=== PATIENT | female | born 1980 | race American Indian/Alaskan Native ===

== ENCOUNTER 2018-03-15 05:46 | Day surgery (SDC) | payer OTHER ==
[2018-01-22 10:18] VITALS: BMI 37.5
[2018-03-15] MEDS ORDERED: Propofol 10 mg/ml Inj (20 ML) ONE (08:28)
--- NOTE | 2018-03-15 08:29 | CP.SDSHP ---
Same Day Surgery H & P - History Proposed Procedure: Colonoscopy Pre-Op Diagnosis: Change in bowel habits, diverticulitis - Previous Medical/Surgical History Cardiac: Hypertension Previous Surgical History: Fibroids, rotator cuff - Allergies Allergies: Allergies No Known Allergies Allergy (Verified 12/01/17 21:18) - Current Medications Current Medications: See reconciliation sheet - Physical Exam General Appearance: WD WN female in NAD Vital Signs: Vital Signs 03/15/18 06:47 Temperature 97.3 F L Pulse Rate 64 Respiratory 19 Rate Blood Pressure 149/85 O2 Sat by Pulse 99 Oximetry Mental Status: Alert & Oriented x3 Neuro: WNL Heart: WNL Lungs: WNL GI: WNL - {Optional Preform as Required} Abdomen: WNL - Impression Impression: Change in bowel habits, diverticulitis Pt. Evaluated Today:Candidate for Anesthesia & Procedure: Yes - Date & Time Date: 03/15/18 Time: 08:29 Short Stay Discharge - Short Stay Discharge Admitting Diagnosis/Reason for Visit: CHANGE IN BOWEL HABITS Disposition: HOME/ ROUTINE
[2018-03-15 09:18] VITALS: TEMP 97.5; O2SAT 100
[2018-03-15 11:12] VITALS: BP 125/81; PULSE 65; RESP 21
== END 2018-03-15 10:20 | disposition home or self-care (01) ==
LOC: C.ENDO 05:46
PROVIDERS: ATTEND Internal Medicine Gastroenterology
DX: D12.2 Benign neoplasm of ascending colon (principal); K57.30 Diverticulosis of large intestine without perforation or abscess without bleeding; R19.4 Change in bowel habit; I10 Essential (primary) hypertension
CPT/HCPCS: 45380; 84703; 88305; J2704

== ENCOUNTER 2018-04-25 13:24 | Emergency (ER) | payer OTHER ==
[2018-04-25 13:24] VITALS: BMI 37.5
[2018-04-25] MEDS ORDERED: Sodium Chloride 0.9% 1,000 ML IV ONE (13:50)
[2018-04-25] MEDS ORDERED: Sodium Chloride 0.9% 1,000 ML ONE (14:30)
--- NOTE | 2018-04-25 15:08 | C.PDOC ---
History Of Present Illness 37 y/o female, with PMHx of gastritis, presents to ED c/o epigastric abdominal pain. Notes he started staking Prilosec and has been burping frequently since then. Denies ever having endoscopy. Denies nausea, vomiting, fever, or dysuria. Chief Complaint (Nursing): Abdominal Pain History Per: Patient History/Exam Limitations: no limitations Past Medical History Reviewed: Historical Data, Nursing Documentation, Vital Signs Vital Signs: Last Vital Signs Temp 98.8 F 04/25/18 16:07 Pulse 50 L 04/25/18 16:07 Resp 20 04/25/18 16:07 BP 126/84 04/25/18 16:07 Pulse Ox 100 04/25/18 16:07 - Medical History PMH: Diverticulitis, HTN Denies: Deep Vein Thrombosis, Chronic Kidney Disease Surgical History: Denies: Pacemaker - [facility] Procedures INJECT/INFUSE NEC (04/24/15) INSERTION OF INFUSION DEV INTO L SUBCLAV VEIN, PERC APPROACH (12/02/17) PHYSICAL THERAPY NEC (02/09/14) ULTRASONOGRAPHY OF LEFT SUBCLAVIAN VEIN, GUIDANCE (12/02/17) UTERINE LES DESTRUCT NEC (06/26/15) Family History: States: Unknown Family Hx - Social History Hx Tobacco Use: No Hx Alcohol Use: No Hx Substance Use: No - Immunization History Hx Tetanus Toxoid Vaccination: No Hx Influenza Vaccination: No Hx Pneumococcal Vaccination: No Review Of Systems Except As Marked, All Systems Reviewed And Found Negative. Constitutional: Negative for: Fever, Chills Cardiovascular: Negative for: Chest Pain, Palpitations Gastrointestinal: Positive for: Abdominal Pain. Negative for: Nausea, Vomiting , Diarrhea Genitourinary: Negative for: Dysuria, Frequency, Hematuria Physical Exam - Physical Exam Appears: Non-toxic, No Acute Distress Skin: Normal Color, Warm, Dry Head: Atraumatic, Normacephalic Eye(s): bilateral: Normal Inspection Oral Mucosa: Moist Neck: Supple Cardiovascular: Rhythm Regular Respiratory: Normal Breath Sounds, No Rales, No Rhonchi, No Wheezing Gastrointestinal/Abdominal: Soft, No Tenderness, No Guarding, No Rebound Back: No CVA Tenderness Extremity: Normal ROM Neurological/Psych: Oriented x3, Normal Speech ED Course And Treatment - Laboratory Results Result Diagrams: 04/25/18 15:39 04/25/18 14:57 O2 Sat by Pulse Oximetry: 97 (RA) Pulse Ox Interpretation: Normal Medical Decision Making Medical Decision Making: Plan: Blood work Urinalysis Urine culture Pepcid, Zofran, IV fluids Disposition - Disposition Referrals: Aliyah Cortes, [Non-Staff] - Disposition: HOME/ ROUTINE Disposition Time: 15:50 Condition: GOOD Additional Instructions: ASHISH LOOMIS, thank you for letting us take care of you today. Your provider was Onofre Carr DO and you were treated for ABD PAIN. The emergency medical care you received today was directed at your acute symptoms. If you were prescribed any medication, please fill it and take as directed. It may take several days for your symptoms to resolve. Return to the Emergency Department if your symptoms worsen, do not improve, or if you have any other problems. Please contact your doctor or call one of the physicians/clinics you have been referred to that are listed on the Patient Visit Information form that is included in your discharge packet. Bring any paperwork you were given at discharge with you along with any medications you are taking to your follow up visit. Our treatment cannot replace ongoing medical care by a primary care provider outside of the emergency department. Thank you for allowing the [facility] team to be part of your care today. Follow up with your primary care doctor in 3-4 days for re-evaluation and further management. Instructions: Gastritis (DC) Forms: [employer] (Urdu) - Clinical Impression Clinical Impression: Gastroesophageal reflux disease - Scribe Statement The provider has reviewed the documentation as recorded by the Scribe KP All medical record entries made by the Scribe were at my direction and personally dictated by me. I have reviewed the chart and agree that the record accurately reflects my personal performance of the history, physical exam, medical decision making, and the department course for this patient. I have also personally directed, reviewed, and agree with the discharge instructions and disposition.
[2018-04-25 15:11] LABS: URINE BILIRUBIN NEGATIVE (NEGATIVE); URINE BLOOD 3+ (NEGATIVE); URINE CLARITY Hazy (Clear); URINE COLOR Red (YELLOW); URINE GLUCOSE (UA) NORMAL (Normal); URINE LEUKOCYTE ESTERASE 1+ Leu/uL (Negative); URINE PROTEIN 2+ mg/dL (NEGATIVE); URINE UROBILINOGEN NORMAL mg/dL (0.2-1.0)
[2018-04-25 15:29] LABS: ALB/GLOB RATIO 1.1 (1.0-2.1); ALT/SGPT 15 U/L (9-52); AST/SGOT 34 U/L (14-36); BLOOD UREA NITROGEN 11 mg/dL (7-17); CALCIUM 9.1 mg/dl (8.6-10.4); GFR AFRICAN-AMERICAN > 60; GFR NON-AFRICAN AMERICAN > 60; LIPASE 74 U/L (23-300)
[2018-04-25 15:45] LABS: BASO # 0.1 K/uL (0.0-0.2); EOS # 0.1 K/uL (0.0-0.7); HEMOGLOBIN 11.9 g/dL (11.0-16.0); LYMPH # 2.5 K/uL (1.0-4.3); LYMPH % 42.7 % (20.0-40.0); MEAN CELL VOLUME 84.9 fL (81.0-99.0); MEAN PLATELET VOLUME 7.6 fL (7.2-11.7); MONO # 0.6 K/uL (0.0-0.8); MONO % 10.5 % (0.0-10.0); NEUT # 2.5 K/uL (1.8-7.0); NEUT % 43.8 % (50.0-75.0); NRBC % 0.1 % (0.0-2.0); RBC 4.25 Mil/uL (3.80-5.20); RED CELL DISTRIBUTION WIDTH 14.4 % (11.5-14.5); WHITE BLOOD COUNT 5.8 K/uL (4.8-10.8)
[2018-04-25 16:07] VITALS: BP 126/84; PULSE 50; RESP 20; TEMP 98.8
[2018-04-25 18:36] VITALS: O2SAT 97
== END 2018-04-25 16:08 | disposition home or self-care (01) ==
LOC: C.ER 13:24
DX: K21.9 Gastro-esophageal reflux disease without esophagitis (principal); I10 Essential (primary) hypertension
CPT/HCPCS: 80053; 81001; 83690; 84702; 85025; 87086; 93005; 96361; 96374; 96375; 99284; J2405; J7030

== ENCOUNTER 2018-10-10 08:20 | Emergency (ER) | payer OTHER ==
[2018-10-10 08:20] VITALS: BMI 37.5
[2018-10-10] MEDS ORDERED: Sodium Chloride 0.9% 1,000 ML IV ONE (09:05)
[2018-10-10] MEDS ORDERED: Iohexol 240 (50 ml) PO STA (09:05)
--- NOTE | 2018-10-10 09:07 | C.PDOC ---
History Of Present Illness 38 year old female presents to the ED for evaluation of localized left lower quadrant pain for 5 days. The patient reports the pain started as epigastric pain with constipations but now the pain is localized to the left lower quadra nt. Notes she increased her fluid intake and now has regular bowel movements. States the pain is worse when eating. Admits prior use of omeprazole, ran out of medication. Denies fever, chills, nausea, vomiting, urinary symptoms, and any other associated symptoms. Time Seen by Provider: 10/10/18 08:53 Chief Complaint (Nursing): Abdominal Pain History Per: Patient History/Exam Limitations: no limitations Onset/Duration Of Symptoms: Days (x5) Current Symptoms Are (Timing): Still Present Past Medical History Reviewed: Historical Data, Nursing Documentation, Vital Signs Vital Signs: Last Vital Signs Temp 98.9 F 10/10/18 08:43 Pulse 70 10/10/18 08:43 Resp 18 10/10/18 08:43 BP 144/90 10/10/18 08:43 Pulse Ox 96 10/10/18 08:43 - Medical History PMH: Diverticulitis, HTN Denies: Deep Vein Thrombosis, Chronic Kidney Disease Surgical History: Denies: Pacemaker - [facility] Procedures INJECT/INFUSE NEC (04/24/15) INSERTION OF INFUSION DEV INTO L SUBCLAV VEIN, PERC APPROACH (12/02/17) PHYSICAL THERAPY NEC (02/09/14) ULTRASONOGRAPHY OF LEFT SUBCLAVIAN VEIN, GUIDANCE (12/02/17) UTERINE LES DESTRUCT NEC (06/26/15) Family History: States: Unknown Family Hx - Social History Hx Tobacco Use: No Hx Alcohol Use: No Hx Substance Use: No - Immunization History Hx Tetanus Toxoid Vaccination: No Hx Influenza Vaccination: No Hx Pneumococcal Vaccination: No Review Of Systems Constitutional: Negative for: Fever, Chills Gastrointestinal: Positive for: Abdominal Pain (Left lower quadrant. ). Negative for: Nausea, Vomiting Genitourinary: Negative for: Other (urinary symptoms. ) Physical Exam - Physical Exam Appears: Well, Non-toxic, No Acute Distress Skin: Normal Color, Warm, Dry Head: Atraumatic, Normacephalic Eye(s): bilateral: Normal Inspection Oral Mucosa: Moist Neck: Normal ROM, Supple Chest: Symmetrical Cardiovascular: Rhythm Regular, No Murmur Respiratory: Normal Breath Sounds, No Rales, No Rhonchi, No Wheezing Gastrointestinal/Abdominal: Normal Exam, Soft, Tenderness (to the left lower quadrant. ) Extremity: Bilateral: Atraumatic, Normal Color And Temperature, Normal ROM Neurological/Psych: Oriented x3, Normal Speech Gait: Steady ED Course And Treatment - Laboratory Results Result Diagrams: 10/10/18 09:40 10/10/18 09:40 O2 Sat by Pulse Oximetry: 96 (RA) Pulse Ox Interpretation: Normal - CT Scan/US CT ABD/PELVIS Other Rad Studies (CT/US): Read By Radiologist CT/US Interpretation: FINDINGS: LOWER THORAX: The visualized lungs are clear. LIVER: Mild hepatomegaly and fatty liver. Normal homogeneous enhancement. No gross lesion or ductal dilatation. GALLBLADDER AND BILE DUCTS: Well distended. No calcified gallstones, wall thickening or pericholecystic fluid. PANCREAS: Normal in size with homogeneous enhancement. No gross lesion or ductal dilatation. SPLEEN: Normal in size and appearance. ADRENALS: No discrete nodule. KIDNEYS AND URETERS: Normal in size with homogeneous enhancement. No hydronephrosis. No solid mass. VASCULATURE: No aortic aneurysm. BOWEL: The small bowel loops are normal in caliber. There is left colonic diverticulosis. There is segmental moderate circumferential mural thickening in the distal descending and proximal sigmoid colon. There is mild surrounding inflammatory fat stranding. No micro perforation or abscess. APPENDIX: Normal appendix. PERITONEUM: No free fluid. No free air. LYMPH NODES: No enlarged lymph nodes. BLADDER: Well distended and normal in appearance. REPRODUCTIVE: There is an enlarged lobular fibroid uterus. There is redemonstration of a dilated tubular structure in the left adnexa. BONES: No acute fracture. Within normal limits for the patient's age. OTHER FINDINGS: None. IMPRESSION: Left colonic diverticulosis. Moderate circumferential mural thickening in the distal descending and proximal sigmoid colon with mild pericolonic inflammatory fat stranding most compatible with acute diverticulitis. No micro perforation or abscess. Enlarged fibroid uterus. Redemonstration of dilated tubular structure in the left adnexa likely hydrosalpinx. Correlation with pelvic ultrasound is recommended for definitive evaluation. Mild hepatomegaly and fatty liver. Medical Decision Making Medical Decision Making: Plan: -CT ABD/Pelvis PO & IV Contrast -Toradol -HCG Urine -Urinalysis Labs reviewed and unremarkable. CT shows findings consistent with diverticulitis. Will treat with cipro and flagyl. Patient stable for discharge and given Rx Disposition Counseled Patient/Family Regarding: Diagnosis, Need For Followup, Rx Given - Disposition Referrals: Jamel Khoury MD [Staff Provider] - Disposition: HOME/ ROUTINE Disposition Time: 12:11 Condition: GOOD Additional Instructions: Follow up with your primary medical doctor or clinic in 2-5 days for further evaluation. Take medications as prescribed. Return to the emergency department at any time if symptoms persist or worsen. Prescriptions: Ciprofloxacin HCl [Cipro] 500 mg PO BID #14 tab metroNIDAZOLE [Flagyl] 500 mg PO BID #14 tab Omeprazole 40 mg PO DAILY #30 capsule. Instructions: Diverticulitis (DC) Forms: [employer] (Nauruan) - POA Present On Arrival: None - Clinical Impression Clinical Impression: Acute diverticulitis - PA / AMPHIBIOUS OPERATIONS OFFICER / Resident Statement MD/DO has reviewed & agrees with the documentation as recorded. - Scribe Statement The provider has reviewed the documentation as recorded by the Scribe (Daja King) All medical record entries made by the Scribe were at my direction and personally dictated by me. I have reviewed the chart and agree that the record accurately reflects my personal performance of the history, physical exam, medical decision making, and the department course for this patient. I have also personally directed, reviewed, and agree with the discharge instructions and disposition.
[2018-10-10] MEDS ORDERED: Sodium Chloride 0.9% 1,000 ML ONE (09:16)
[2018-10-10] MEDS ORDERED: Iohexol 240 (50 ml) ONE (09:16)
[2018-10-10 09:48] LABS: BASO % 0.9 % (0.0-2.0); EOS # 0.1 K/uL (0.0-0.7); EOS % 1.5 % (0.0-4.0); HEMOGLOBIN 12.5 g/dL (11.0-16.0); LYMPH # 2.4 K/uL (1.0-4.3); LYMPH % 50.8 % (20.0-40.0); MEAN CELL VOLUME 85.1 fL (81.0-99.0); MEAN CORPUSCULAR HGB CONC 32.9 g/dL (33.0-37.0); MEAN PLATELET VOLUME 7.9 fL (7.2-11.7); MONO # 0.5 K/uL (0.0-0.8); MONO % 10.8 % (0.0-10.0); NEUT # 1.7 K/uL (1.8-7.0); NRBC % 0.1 % (0.0-2.0); RBC 4.48 Mil/uL (3.80-5.20); RED CELL DISTRIBUTION WIDTH 14.2 % (11.5-14.5); WHITE BLOOD COUNT 4.7 K/uL (4.8-10.8)
[2018-10-10 10:06] LABS: SQUAMOUS EPITHIAL 10 /hpf (0-5); URINE BACTERIA MANY (<OCC); URINE BILIRUBIN NEGATIVE (NEGATIVE); URINE BLOOD NEGATIVE (NEGATIVE); URINE CLARITY Hazy (Clear); URINE COLOR Yellow (YELLOW); URINE GLUCOSE (UA) NORMAL (Normal); URINE LEUKOCYTE ESTERASE TRACE Leu/uL (Negative); URINE PROTEIN NEGATIVE (NEGATIVE); URINE UROBILINOGEN NORMAL mg/dL (0.2-1.0)
[2018-10-10 10:10] LABS: ALB/GLOB RATIO 1.3 (1.0-2.1); ALBUMIN 4.2 g/dL (3.5-5.0); ALT/SGPT 31 U/L (9-52); AMYLASE 62 U/L (30-110); AST/SGOT 34 U/L (14-36); BLOOD UREA NITROGEN 9 mg/dL (7-17); CALCIUM 9.1 mg/dl (8.6-10.4); GFR NON-AFRICAN AMERICAN > 60; LIPASE 34 U/L (23-300)
[2018-10-10 10:12] LABS: HCG,QUALITATIVE URINE NEGATIVE (NEGATIVE)
[2018-10-10] MEDS ORDERED: Iodixanol 320 MG/ML 100 ML BOTTLE IV ONE (10:30)
[2018-10-10 12:08] VITALS: BP 142/88; PULSE 85; RESP 20; TEMP 98.3
[2018-10-10 12:11] VITALS: O2SAT 96
--- NOTE | 2018-10-10 12:11 | CT ---
Date of service: 10/10/2018 PROCEDURE: CT Abdomen and Pelvis with contrast HISTORY: Abdominal pain, LLQ COMPARISON: 07/24/2014. TECHNIQUE: CT scan of the abdomen and pelvis was performed after administration of intravenous contrast. Oral contrast was administered. Coronal and sagittal reformatted images were obtained. Contrast dose: 100 mL Visipaque 320 Radiation dose: Total exam DLP = 1083.68 mGy-cm. This CT exam was performed using one or more of the following dose reduction techniques: Automated exposure control, adjustment of the mA and/or kV according to patient size, and/or use of iterative reconstruction technique. FINDINGS: LOWER THORAX: The visualized lungs are clear. LIVER: Mild hepatomegaly and fatty liver. Normal homogeneous enhancement. No gross lesion or ductal dilatation. GALLBLADDER AND BILE DUCTS: Well distended. No calcified gallstones, wall thickening or pericholecystic fluid. PANCREAS: Normal in size with homogeneous enhancement. No gross lesion or ductal dilatation. SPLEEN: Normal in size and appearance. ADRENALS: No discrete nodule. KIDNEYS AND URETERS: Normal in size with homogeneous enhancement. No hydronephrosis. No solid mass. VASCULATURE: No aortic aneurysm. BOWEL: The small bowel loops are normal in caliber. There is left colonic diverticulosis. There is segmental moderate circumferential mural thickening in the distal descending and proximal sigmoid colon. There is mild surrounding inflammatory fat stranding. No micro perforation or abscess. APPENDIX: Normal appendix. PERITONEUM: No free fluid. No free air. LYMPH NODES: No enlarged lymph nodes. BLADDER: Well distended and normal in appearance. REPRODUCTIVE: There is an enlarged lobular fibroid uterus. There is redemonstration of a dilated tubular structure in the left adnexa BONES: No acute fracture. Within normal limits for the patient's age. OTHER FINDINGS: None. IMPRESSION: Left colonic diverticulosis. Moderate circumferential mural thickening in the distal descending and proximal sigmoid colon with mild pericolonic inflammatory fat stranding most compatible with acute diverticulitis. No micro perforation or abscess. Enlarged fibroid uterus. Redemonstration of dilated tubular structure in the left adnexa likely hydrosalpinx. Correlation with pelvic ultrasound is recommended for definitive evaluation. Mild hepatomegaly and fatty liver.
== END 2018-10-10 12:23 | disposition home or self-care (01) ==
LOC: C.ER 08:20
DX: K57.92 Diverticulitis of intestine, part unspecified, without perforation or abscess without bleeding (principal); I10 Essential (primary) hypertension
CPT/HCPCS: 74177; 80053; 81001; 82150; 83690; 84703; 85025; 96361; 96374; 96375; 99285; J1885; J7030; Q9966; Q9967

== ENCOUNTER 2018-11-11 12:22 | Outpatient (CLI) | payer OTHER | END 2018-11-11 12:23 | disposition home or self-care (01) | LOC: C.PAT 12:22 | DX: D25.9 Leiomyoma of uterus, unspecified (principal) ==

== ENCOUNTER → 2018-11-16 | Day surgery (SDC) | payer OTHER ==
[~2018-11-16] MED LIST: HYDROmorphone 0.5 mg/0.5 ml ISec IVP PRN; Midazolam 2 MG/2 ML VIAL ONE; Propofol 10 mg/ml Inj (20 ML) ONE; ceFAZolin 1 gm in NS 2 GM/200 ML BAG IVPB ONE
[2018-11-16 09:40] VITALS: O2SAT 100
[2018-11-16 10:05] VITALS: PULSE 89; RESP 15; TEMP 98.4
[2018-11-16 10:17] VITALS: BP 139/72
--- NOTE | 2018-11-16 15:18 | OP ---
PROCEDURE DATE: 11/16/2018 PREOPERATIVE DIAGNOSES: Fibroid uterus, menorrhagia. POSTOPERATIVE DIAGNOSES: Fibroid uterus, menorrhagia. PROCEDURE: Hysteroscopy, hysteroscopic myomectomy, dilatation and curettage of the uterus. FINDINGS: A 14-week size fibroid uterus with a cm anterior submucosal myoma, the remainder of the endometrial cavity is normal and a normal endocervical canal. SURGEON: Amelie Burleson MD ANESTHESIA: General. ESTIMATED BLOOD LOSS: Less than 1 mL. COMPLICATIONS: Nil. INDICATION FOR PROCEDURE: After the risks, benefits, and alternatives of the planned procedures including but not limited to infection, hemorrhage, deep vein thrombosis, atelectasis, pneumonia, pulmonary embolism, damage to the bladder, damage to the ureter, renal insufficiency, renal failure, wound infection, wound dehiscence, incisional hernia, keloid formation, damage to large and small intestines, damage to inferior vena cava and aorta requiring extensive repair, anesthesia complications, electrolyte imbalance, possibility of , fluid overload, cerebral edema, embolism, and other complications that were discussed but are not listed above had been explained to the patient and all her questions answered, informed consent was obtained. DESCRIPTION OF PROCEDURE: The patient was taken to the operating room in a stable condition. Under a suitable level of general anesthesia, she was prepped and draped in a sterile fashion after having been placed in a dorsal lithotomy position. A Hernandez catheter was inserted. Examination under anesthesia revealed a 14-week size uterus, anteverted with no adnexal masses. A weighted speculum was inserted into the vagina. The anterior lip of the cervix was grasped using a single-tooth tenaculum. Endocervical curettage was performed and scant tissue was obtained. The uterus was sounded to 9 cm. The cervix was dilated to a #18 Hanks dilator. A hysteroscope was inserted into the uterus using a MyoSure device and submucosal myoma was resected up to the level of the endometrium with good hemostasis. The hysteroscope was then removed and endometrial curettage was performed. Scant tissue was obtained and submitted separately for pathology. Bleeding area on the right side of the tenaculum site was ligated using 2-0 chromic and FloSeal was applied with excellent hemostasis achieved. Instruments were removed from the vagina. The patient was then transferred to the recovery room in a stable condition. Pad and instrument counts were correct x2. There were no complications. Amelie Burleson MD
== END | disposition home or self-care (01) ==
LOC: C.SDS 07:00
PROVIDERS: ATTEND Obstetrics & Gynecology Reproductive Endocrinology
DX: D25.9 Leiomyoma of uterus, unspecified (principal); N92.0 Excessive and frequent menstruation with regular cycle
CPT/HCPCS: 58558; 88305; C2615; J0690; J1100; J1885; J2001; J2250; J2405; J2704; J3010

== ENCOUNTER 2019-02-21 08:52 | Emergency (ER) | payer OTHER ==
[2019-02-21 08:53] VITALS: BMI 37.5
[2019-02-21 08:58] VITALS: O2SAT 100
--- NOTE | 2019-02-21 09:54 | C.PDOC ---
History Of Present Illness 38 year old female presents to ED with complaint of intermittent crampy epigastric pain for the past 2 weeks. Patient states that the pain radiates into her back. Patient states that she has been having chronic constipation and has b een taking Miralax and Dulcolax. She states that she had a normal bowel movement yesterday. She reports over the past 2 weeks she has been eating normally and has been "eating everything." Patient denies vomiting, diarrhea, GI bleeding, chest pain, and SOB. Time Seen by Provider: 02/21/19 09:17 Chief Complaint (Nursing): Abdominal Pain History Per: Patient History/Exam Limitations: no limitations Onset/Duration Of Symptoms: Other (2 weeks) Current Symptoms Are (Timing): Still Present Location Of Pain/Discomfort: Epigastric Radiation Of Pain To:: Back Quality Of Discomfort: Cramping Associated Symptoms: Back Pain. denies: Fever, Chills, Nausea, Vomiting, Diarrhea, Urinary Symptoms Exacerbating Factors: None Alleviating Factors: None Last Bowel Movement: Yesterday Past Medical History Reviewed: Historical Data, Nursing Documentation, Vital Signs Vital Signs: Last Vital Signs Temp 97.8 F 02/21/19 09:06 Pulse 85 02/21/19 09:06 Resp 18 02/21/19 09:06 BP 153/90 H 02/21/19 09:06 Pulse Ox 100 02/21/19 09:06 Primary Care Provider: Jamel Khoury - Medical History PMH: Diverticulitis, HTN Denies: Deep Vein Thrombosis, Chronic Kidney Disease Surgical History: Denies: Pacemaker - [facility] Procedures INJECT/INFUSE NEC (04/24/15) INSERTION OF INFUSION DEV INTO L SUBCLAV VEIN, PERC APPROACH (12/02/17) PHYSICAL THERAPY NEC (02/09/14) ULTRASONOGRAPHY OF LEFT SUBCLAVIAN VEIN, GUIDANCE (12/02/17) UTERINE LES DESTRUCT NEC (06/26/15) Family History: States: Unknown Family Hx - Social History Hx Tobacco Use: No Hx Alcohol Use: No Hx Substance Use: No - Immunization History Hx Tetanus Toxoid Vaccination: No Hx Influenza Vaccination: No Hx Pneumococcal Vaccination: No Review Of Systems Constitutional: Negative for: Fever, Chills, Weakness Gastrointestinal: Positive for: Abdominal Pain (epigastric pain ). Negative for: Nausea, Vomiting, Diarrhea Genitourinary: Negative for: Dysuria, Frequency, Hematuria Musculoskeletal: Positive for: Back Pain Physical Exam - Physical Exam Appears: Well, Non-toxic, No Acute Distress Skin: Normal Color, Warm, Dry, No Pale, No Rash Head: Atraumatic, Normacephalic Eye(s): bilateral: Normal Inspection, PERRL, EOMI Oral Mucosa: Moist Throat: No Erythema Neck: Normal ROM, Supple Chest: Symmetrical, No Deformity Cardiovascular: Rhythm Regular, No Friction Rub, No Murmur Respiratory: No Accessory Muscle Use, No Rales, No Rhonchi, No Wheezing Gastrointestinal/Abdominal: Soft, No Tenderness, No Distention, No Guarding, No Rebound Back: No CVA Tenderness Extremity: Normal ROM, Capillary Refill (<2 seconds), No Swelling Neurological/Psych: Oriented x3, Normal Speech, Normal Cognition, Normal Motor Gait: Steady ED Course And Treatment - Laboratory Results Result Diagrams: 02/21/19 10:15 02/21/19 10:15 O2 Sat by Pulse Oximetry: 100 (in RA) Pulse Ox Interpretation: Normal Medical Decision Making Medical Decision Making: Initial Plan: EKG Abdomen/Pelvis US CMP lipase troponin UA Pepcid IVP Toradol IVP Zofran IVP On re-exam, the patient reports improvement of symptoms. Lungs are CTA, heart is RRR, abdomen is soft, non-tender and tolerating PO well. Pt is ambulatory in the ED with steady gait. Follow up with the medical doctor within 1-2 days. Return if worsened. Disposition - Disposition Referrals: Jamel Khoury MD [Staff Provider] - Disposition: HOME/ ROUTINE Disposition Time: 12:34 Condition: GOOD Additional Instructions: Follow up with the medical doctor within 1-2 days. Return if worsened. Prescriptions: Famotidine [Pepcid] 20 mg PO BID #20 tab Instructions: Dyspepsia (DC) Forms: [employer] (Slovak) - Clinical Impression Clinical Impression: Abdominal pain, Dyspepsia - PA / SAWMILLING OPERATOR / Resident Statement MD/DO has reviewed & agrees with the documentation as recorded. (Ilana Corbett) - Scribe Statement The provider has reviewed the documentation as recorded by the Scribe (Ilana Corbett) All medical record entries made by the Scribe were at my direction and personally dictated by me. I have reviewed the chart and agree that the record accurately reflects my personal performance of the history, physical exam, medical decision making, and the department course for this patient. I have also personally directed, reviewed, and agree with the discharge instructions and disposition.
[2019-02-21 10:24] LABS: BASO # 0.1 K/uL (0.0-0.2); BASO % 1.3 % (0.0-2.0); EOS # 0.1 K/uL (0.0-0.7); EOS % 1.7 % (0.0-4.0); HEMOGLOBIN 12.2 g/dL (11.0-16.0); LYMPH # 2.4 K/uL (1.0-4.3); LYMPH % 48.9 % (20.0-40.0); MEAN CELL VOLUME 85.9 fL (81.0-99.0); MEAN CORPUSCULAR HGB CONC 32.6 g/dL (33.0-37.0); MEAN PLATELET VOLUME 8.4 fL (7.2-11.7); MONO # 0.4 K/uL (0.0-0.8); MONO % 8.4 % (0.0-10.0); NEUT % 39.7 % (50.0-75.0); NRBC % 0.1 % (0.0-2.0); RBC 4.37 Mil/uL (3.80-5.20); RED CELL DISTRIBUTION WIDTH 14.9 % (11.5-14.5)
[2019-02-21 10:35] LABS: HCG,QUALITATIVE URINE NEGATIVE (NEGATIVE)
[2019-02-21 10:38] LABS: ALB/GLOB RATIO 1.2 (1.0-2.1); ALBUMIN 4.1 g/dL (3.5-5.0); ALT/SGPT 18 U/L (9-52); AST/SGOT 29 U/L (14-36); BLOOD UREA NITROGEN 13 mg/dL (7-17); CALCIUM 9.2 mg/dl (8.6-10.4); GFR NON-AFRICAN AMERICAN > 60; LIPASE 56 U/L (23-300)
[2019-02-21 10:41] LABS: SQUAMOUS EPITHIAL 2 /hpf (0-5); URINE BILIRUBIN NEGATIVE (NEGATIVE); URINE BLOOD 1+ (NEGATIVE); URINE CLARITY Clear (Clear); URINE COLOR Straw (YELLOW); URINE GLUCOSE (UA) NORMAL (Normal); URINE LEUKOCYTE ESTERASE NEG Leu/uL (Negative); URINE PROTEIN NEGATIVE (NEGATIVE); URINE UROBILINOGEN NORMAL mg/dL (0.2-1.0)
--- NOTE | 2019-02-21 12:29 | US ---
Date of service: 02/21/2019 HISTORY: epigast. RUQ abd pain COMPARISON: CT of the abdomen pelvis with contrast performed 10/10/18 TECHNIQUE: Sonographic evaluation of the right upper quadrant of the abdomen. FINDINGS: LIVER: Measures 18.7 cm in length. Echogenic liver may be seen in setting of hepatic parenchymal disease or fatty infiltration. No focal hepatic mass identified. The main portal vein appears patent with normal directional flow. No intrahepatic bile duct dilatation. GALLBLADDER: No gallstones. No gallbladder wall thickening or pericholecystic edema. Negative sonographic Vargas's sign as assessed by the data reporting analyst. COMMON BILE DUCT: Measures 3 mm. PANCREAS: Not well-visualized. RIGHT KIDNEY: Measures approximately 12.7 x 4.6 x 5.0 cm. No obstructing calculus or hydronephrosis identified. AORTA: Limited visualization appears grossly unremarkable. IVC: Limited visualization appears grossly unremarkable. OTHER FINDINGS: None . IMPRESSION: Echogenic liver may be seen in setting of hepatic parenchymal disease or fatty infiltration. Borderline hepatomegaly.
[2019-02-21 12:58] VITALS: BP 137/91; PULSE 65; RESP 18; TEMP 98.1
--- NOTE | 2019-02-23 13:48 | CARD ---
APPROVED REPORT Date of service: 02/21/2019 EKG Measurement Heart [id number] <Conclusion> Normal sinus rhythm with sinus arrhythmia Nonspecific T wave abnormality Borderline ECG
== END 2019-02-21 12:58 | disposition home or self-care (01) ==
LOC: C.ER 08:52
DX: R10.13 Epigastric pain (principal); I10 Essential (primary) hypertension
CPT/HCPCS: 76705; 80053; 81001; 81025; 83690; 84484; 84703; 85025; 93005; 96374; 96375; 99285; J1885; J2405